=== PATIENT | female | born 1950 | race African-American/Black ===

== ENCOUNTER → 2016-04-21 | Outpatient (CLI) | payer MEDICARE, OTHER ==
[2016-04-05 10:14] VITALS: BP 118/81
[~2016-04-21] MED LIST: ACET325T16 PO; ALBU2.5V5 INH; AMLO10TA2 PO; AMOX1TAB10 PO; AZAT50TA PO; BECL8.7A INH; BUDE10.2 IH; CALC667C6 PO; CARV3.122 PO; CETI10TA16 PO; GABA-586 PO; GABA600T2 PO; HYDR-2672 PO; HYDR12.53 PO; IPRA3AMP NEB; OXYGEN; POTA10CA PO; POTA20TA12 PO; POTA20TA4 PO; PRED20TA PO; PROAIR HFA8.5 GM IH; SIMV20TA3 PO; SPIR50TA2 PO; WATER PILL; [UNRECOGNIZED DRUG - REMARK]
--- NOTE | 2016-04-21 11:22 | RAD ---
DATE: 04/21/2016. EXAM: DIGITAL SCREEN BILAT W/CAD HISTORY: Routine screening. COMPARISON: 04/15/2015. This study was interpreted with the benefit of Computerized Aided Detection (CAD). FINDINGS: 2-D digital mammography was performed. Mild density is noted bilaterally. The parenchymal pattern is stable. No dominant mass or malignant-appearing microcalcifications are seen. The axillae are unremarkable. IMPRESSION: No mammographic features suspicious for malignancy. BI-RADS CATEGORY: 1 NEGATIVE RECOMMENDED FOLLOW-UP: 12M 12 MONTH FOLLOW-UP PQRS compliance statement: Patient information was entered into a reminder system with a target due date for the next mammogram. Mammography is a sensitive method for finding small breast cancers, but it does not detect them all and is not a substitute for careful clinical examination. A negative mammogram does not negate a clinically suspicious finding and should not result in delay in biopsying a clinically suspicious abnormality. "Our facility is accredited by the [employer] Mammography Program."
== END | disposition home or self-care (01) ==
LOC: MAMMO 10:27
PROVIDERS: ATTEND Internal Medicine
DX: Z12.31 Encounter for screening mammogram for malignant neoplasm of breast (principal)
CPT/HCPCS: G0202; 77067

== ENCOUNTER 2017-03-24 17:08 | Emergency (ER) | payer MEDICARE, OTHER ==
[2017-03-24] MEDS: CYCLOBENZAPRINE 10 MG TABLET. PO (18:24)
[2017-03-24] MEDS: DIPHTH,PERTUSS(ACELL),TET TOX 0.5 ML DISP.SYRIN. VAX IM (18:26)
== END 2017-03-24 19:21 | disposition home or self-care (01) ==
LOC: ER 17:08
DX: S63.622A Sprain of interphalangeal joint of left thumb, initial encounter (principal); S80.01XA Contusion of right knee, initial encounter; S20.212A Contusion of left front wall of thorax, initial encounter; J44.9 Chronic obstructive pulmonary disease, unspecified; N18.9 Chronic kidney disease, unspecified; Z90.710 Acquired absence of both cervix and uterus; Z99.81 Dependence on supplemental oxygen; W18.39XA Other fall on same level, initial encounter; Y93.01 Activity, walking, marching and hiking; Y92.89 Other specified places as the place of occurrence of the external cause; Y99.8 Other external cause status
CPT/HCPCS: 29125; 71101; 73130; 73564; 90471; 90715; 99284-25

== ENCOUNTER → 2017-05-11 | Outpatient (CLI) | payer MEDICARE, OTHER | END | disposition home or self-care (01) | LOC: MAMMO 08:20 | DX: Z12.31 Encounter for screening mammogram for malignant neoplasm of breast (principal) | CPT/HCPCS: 77063; 77067 ==

== ENCOUNTER → 2018-08-08 | Day surgery (SDC) | payer OTHER ==
[~2018-08-08] MED LIST changes: +ALBU2.5V8 IH; -AMLO10TA2 PO; +AMLO10TA8 PO; -BECL8.7A INH; +BECL8.7A7 INH; +CARV3.1210 PO; -CARV3.122 PO; +CYCL10TA2 PO; +DICL50TA4 PO; -GABA-586 PO; +GABA300C18 PO; -GABA600T2 PO; +GABA600T7 PO; -HYDR-2672 PO; +HYDR-2769 PO; -HYDR12.53 PO; +HYDR12.575 PO; -IPRA3AMP NEB; +IPRA3AMP29 NEB; +IV RINGERS,LACTATED 1000ML 1,000 ML IV SCH; +LIDOCAINE 1% PF 2 ML VIAL. ID PRN; +LIDOCAINE 2% PF 5 ML VIAL. ONE; +MIDAZOLAM HCL/PF 2 MG/2 ML VIAL. IV PRN; -POTA10CA PO; +POTA10TA12 PO; -PROAIR HFA8.5 GM IH; +PROPOFOL 40 ML IV ONE; -SPIR50TA2 PO; +SPIR50TA4 PO; +fentaNYL PF VIAL 100 MCG/2 ML VIAL IV PRN
[2018-08-08 12:10] VITALS: BP 155/80
--- NOTE | 2018-08-09 15:06 | PATHOLOGY ---
[facility] Accession Number: [id number] . 01 Material submitted: . PART A: stomach - RANDOM GASTRIC BIOPSY PART B: stomach - GASTRIC POLYP . 01 Clinical history: . Esophageal varices . 02 Diagnosis: A. Random gastric biopsies: - Mild chronic gastritis. . B. Gastric biopsy, gastric polyp: - Small hyperplastic polyp. . (JPM:mml; 08/09/2018) [facility]/08/09/2018 . 02 Comment: Sections of the random gastric biopsy reveal segments of gastric body and gastric antral mucosa. The gastric body mucosa shows congestion and very mild superficial chronic inflammation. The gastric antral/body transition mucosa shows congestion and mild chronic inflammation. A properly-controlled immunoperoxidase stain for Helicobacter is negative for Helicobacter organisms. . Sections of the gastric polyp biopsy reveal a small polypoid segment of gastric mucosa showing mild foveolar hyperplasia and congestion, consistent with hyperplastic polyp. There are no adenomatous changes or evidence of malignancy. . Special stain performed: Immunoperoxidase stain for Helicobacter on A1. . (JPM:mml; 08/09/2018) . 02 Electronically signed: . Galen Horne MD, Pathologist NPI- [id number] . 01 Gross description: . A. Received in formalin labeled "Franco, Pinky, random gastric BX," are 4 segments of luong soft tissue measuring 1.1 x 0.9 x 0.2 cm in aggregate dimensions and ranging from 0.2 to 0.5 cm in maximum dimension. The specimen is submitted entirely in cassette A1. . B. Received in formalin labeled "Franco, Pinky, gastric polyp," is a single segment of luong soft tissue measuring 0.1 cm in maximum dimension. The specimen is entirely submitted in cassette B1. (TSD; 08/08/2018) TOB/TOB . 02 Pathologist provided ICD-10: K29.50, K31.7 . 02 CPT . 368596, 959028, P03697 Specimen Comment: A courtesy copy of this report has been sent to Specimen Comment: [phone], . Specimen Comment: Report sent to / DR RUCKER Performed at: [address] [facility], [place] [id number] MD Roland Mead MD Phone: [phone] Performed at: 02 [facility] [address] [place], [place] [id number] MD Galen Horne MD Phone: [phone]
== END | disposition home or self-care (01) ==
LOC: ENDOS 09:14
PROVIDERS: ATTEND Internal Medicine
DX: K22.2 Esophageal obstruction (principal); K22.8 Other specified diseases of esophagus; K44.9 Diaphragmatic hernia without obstruction or gangrene; K29.50 Unspecified chronic gastritis without bleeding; K31.89 Other diseases of stomach and duodenum; K31.7 Polyp of stomach and duodenum; I12.9 Hypertensive chronic kidney disease with stage 1 through stage 4 chronic kidney disease, or unspecified chronic kidney disease; N18.9 Chronic kidney disease, unspecified; E78.00 Pure hypercholesterolemia, unspecified; F32.9 Major depressive disorder, single episode, unspecified; Z86.010 Personal history of colon polyps; Z87.891 Personal history of nicotine dependence; Z79.899 Other long term (current) drug therapy; Z98.890 Other specified postprocedural states; J96.11 Chronic respiratory failure with hypoxia; Z99.81 Dependence on supplemental oxygen; F10.20 Alcohol dependence, uncomplicated; K74.60 Unspecified cirrhosis of liver
CPT/HCPCS: 43239; 88305; 88342; J2001; J2704

== ENCOUNTER → 2018-12-13 | Outpatient (CLI) | payer MEDICARE, OTHER ==
[2018-08-08 12:10] VITALS: BP 155/80
[~2018-12-13] MED LIST changes: -IV RINGERS,LACTATED 1000ML 1,000 ML IV SCH; -LIDOCAINE 1% PF 2 ML VIAL. ID PRN; -LIDOCAINE 2% PF 5 ML VIAL. ONE; -MIDAZOLAM HCL/PF 2 MG/2 ML VIAL. IV PRN; -PROPOFOL 40 ML IV ONE; -fentaNYL PF VIAL 100 MCG/2 ML VIAL IV PRN
--- NOTE | 2018-12-13 17:24 | KCIC ---
Bilateral digital screening mammograms with 3-D tomosynthesis: Reason for examination: Routine screening. Comparison is made to previous studies dated 05/11/2017 and 04/21/2016. Bilateral mammograms in CC and oblique projections were obtained with 2-D imaging and 3-D tomosynthesis imaging on a Siemens Inspiration unit and reviewed on the workstation. Interpretation was made with the benefit of CAD. The skin and nipples show no abnormalities. No abnormal axillary lymph nodes are seen. The breast parenchyma is heterogeneously dense. (Breast density: Category C.) There are no dominant masses, suspicious calcifications or architectural distortion. Benign vascular calcifications are present. Impression: No evidence of malignancy. Recommend routine screening. Your patient's mammogram demonstrates that she has dense breast tissue (breast density category C or D), which could hide abnormalities, and if she has other risk factors for breast cancer that have been identified, she might benefit from supplemental screening tests that may be suggested by you as her ordering physician. Dense breast tissue, in and of itself, is a relatively common condition. Therefore, this information is not provided to cause undue concern, but rather to raise your awareness and to promote discussion with your patient regarding the presence of other risk factors, in addition to dense breast tissue. Your patient's mammography results will be sent to her. BI-RAD Category 2: Benign. "Our facility is accredited by the [employer] Mammography Program." This patient's information has been entered into a reminder system for the patient to be notified with the results of her examination and a target date for the next mammogram. Electronically signed by: Pau Gamino MD (12/13/2018 5:21 PM) [id number]
--- NOTE | 2018-12-13 18:01 | KCIC ---
Bone Densitometry History: Post menopausal, screening. COMPARISON: Bone density 04/15/2015. Findings: Bone Densitometry was performed with dual photon absorption of the lumbar spine and left proximal femur Lumbar Spine: Bone density is 0.792 g/cm2 for L1-L4. T-score is -2.3. Z-score is -1.2. No significant change from prior study. Left total femur: Bone density is 0.525 g/cm2. T-score is -3.4. Z-score is -2.2. No significant change from prior study. IMPRESSION: 1. Advanced osteopenia of the lumbar spine. 2. Osteoporosis of the left femur. World Health Organization definition of osteoporosis and osteopenia for women: normal equals T score at or above -1.0 standard deviations; osteopenia equals T score between -1.0 and -2.5 standard deviations; osteoporosis equals T score at or below -2.5 standard deviations. Electronically signed by: Daniel Holder MD (12/13/2018 5:58 PM) [id number]
== END | disposition home or self-care (01) ==
LOC: KCIC MAMMO 10:42
PROVIDERS: ATTEND Internal Medicine
DX: Z12.31 Encounter for screening mammogram for malignant neoplasm of breast (principal); N64.89 Other specified disorders of breast; M85.88 Other specified disorders of bone density and structure, other site; M81.8 Other osteoporosis without current pathological fracture; Z78.0 Asymptomatic menopausal state
CPT/HCPCS: 77063; 77067; 77080

== ENCOUNTER 2019-12-13 16:17 | Emergency (ER) | payer MEDICARE, OTHER ==
[~2019-12-13] VITALS: Ht 165.1 cm; Wt 62.0 kg
[~2019-12-13 16:17] MED LIST changes: +ACET-2061 PO; -ACET325T16 PO; +SIMV20TA18 PO; -SIMV20TA3 PO
--- NOTE | 2019-12-13 17:23 | EKG ---
[facility] [address] [place] [address] Test Date: 2019-12-13 Test Time: 16:58:56 Pat Name: NICOLE MEDINA Department: Room: Gender: F Curriculum Coordinator: : 1950 Requested By: NAYA SRINIVASAN Order Number: [id number] Reading MD: Measurements Intervals Bee Rate: 81 P: [place]: QRS: 76 QRSD: 92 T: 57 QT: 342 QTc: 402 Interpretive Statements ATRIAL FLUTTER CONSIDER RIGHT VENTRICULAR HYPERTROPHY QRS(T) CONTOUR ABNORMALITY CONSIDER ANTEROLATERAL MYOCARDIAL DAMAGE ST & T ABNORMALITY, CONSIDER ANTERIOR ISCHEMIA OR LEFT VENTRICULAR STRAIN ABNORMAL ECG RI6.02 No previous ECG available for comparison
--- NOTE | 2019-12-13 18:13 | RAD ---
EXAM: AP View of the chest DATE: 12/13/2019 4:59 PM INDICATION: Shortness of air COMPARISON: No Prior FINDINGS: Heart is not enlarged. Aorta is tortuous without scarring calcifications. Patchy opacities left greater than right lung base likely atelectasis or developing consolidation. Emphysematous changes are seen. Trace bilateral pleural effusions. Patient's chin obscures lung apices. Within these constraints, no pneumothorax. IMPRESSION: Patchy opacities left greater than right lung base likely atelectasis or developing consolidation. Emphysematous changes are seen. Trace pleural effusions. Electronically signed by: Dixon Cuba MD (12/13/2019 6:10 PM) KOREY
--- NOTE | 2019-12-13 18:18 | PHYS DOC ---
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 Patient still makes urine, no history of elevated ammonia or jaundice. Denies any fevers or medication overdose. No head trauma or rashes. Denies any recent alcohol or substance abuse. No h/o tremors, gait instability or neuro deficits. (NAYA SRINIVASAN DO) Review of Systems: Review of Systems: Constitutional: Denies fever or chills. [] Eyes: Denies change in visual acuity. [] HENT: Denies nasal congestion or sore throat. [] Respiratory: Denies cough or shortness of breath. [] Cardiovascular: Denies chest pain or edema. [] GI: Denies abdominal pain, nausea, vomiting, bloody stools or diarrhea. [] : Denies dysuria, anuria, hematuria Musculoskeletal: Denies back pain or joint pain. [] Integument: Denies rash. [] Neurologic: Denies headache, focal weakness or sensory changes. [] Endocrine: Denies polyuria or polydipsia. [] Lymphatic: Denies swollen glands. [] Psychiatric: Denies depression or anxiety. [] (NAYA SRINIVASAN DO) Heart Score: Risk Factors: Risk Factors: DM, Current or recent (<one month) smoker, HTN, HLP, family histo ry of CAD, obesity. Risk Scores: Score 0 - 3: 2.5% MACE over next 6 weeks - Discharge Home Score 4 - 6: 20.3% MACE over next 6 weeks - Admit for Clinical Observation Score 7 - 10: 72.7% MACE over next 6 weeks - Early Invasive Strategies (NAYA SRINIVASAN DO) Allergies: Allergies: Allergies Coded Allergies Type Severity Reaction Last Updated Verified No Known Drug Allergies 08/08/18 No (NAYA SRINIVASAN DO) Physical Exam: PE: Constitutional: Well developed, well nourished, no acute distress, non-toxic appearance. [] HENT: Normocephalic, atraumatic, no head bobbing/confusion or asterixis Eyes: EOMI, conjunctiva normal, no discharge. [] Neck: Normal range of motion, no tenderness, supple, no stridor. [] Cardiovascular:Heart rate regular rhythm, no murmur [] Lungs & Thorax: Bilateral breath sounds clear to auscultation [] Abdomen: Bowel sounds normal, soft, +ascites, no tenderness, no masses, no pulsatile masses. [] Skin: Warm, dry, no erythema, no rash. [] Back: No tenderness, no CVA tenderness. [] Extremities: tremulous, no tenderness, no cyanosis, no clubbing, ROM intact, no edema. [] Neurologic: Alert and oriented X 3, normal motor function, normal sensory function, no focal deficits noted. [] Psychologic: Affect normal, judgement normal, mood normal. [] (NAYA SRINIVASAN DO) PE: 69-year-old female signed over to me by . Patient has a resting tremor. Patient had some mild congestion a couple weeks ago and x-ray shows a possible infiltrate therefore should be covered with antibiotics. Rest of her work-up is reassuring other than yeast in her urine. On my assessment patient has a resting tremor but is in no respiratory distress and would like to go home. I discussed the case with Dr. Fofana who is her doctor who will see her early next week. Patient was placed on antibiotics for possible pneumonia and given a Diflucan to take after the antibiotics. Patient given a short course of Ativan for her resting tremor, patient instructed that she will need to follow-up with a neurologist if the tremor persist. (VIVIENNE RANDALL MD) Current Patient Data: Vital Signs: Vital Signs Date Time Temp Pulse Resp B/P (MAP) Pulse Ox O2 Delivery O2 Flow Rate FiO2 12/13/19 17:00 98.1 83 20 123/71 (88) 100 Nasal Cannula 2.0 98.1 (NAYA SRINIVASAN DO) Labs: Laboratory Tests Test 12/13/19 18:05 12/13/19 19:20 White Blood Count 6.1 x10^3/uL Red Blood Count 3.77 x10^6/uL Hemoglobin 12.0 g/dL Hematocrit 35.9 % Mean Corpuscular Volume 95 fL Mean Corpuscular Hemoglobin 32 pg Mean Corpuscular Hemoglobin Concent 34 g/dL Red Cell Distribution Width 14.6 % Platelet Count 177 x10^3/uL Neutrophils (%) (Auto) 64 % Lymphocytes (%) (Auto) 23 % Monocytes (%) (Auto) 11 % Eosinophils (%) (Auto) 1 % Basophils (%) (Auto) 1 % Neutrophils # (Auto) 3.9 x10^3/uL Lymphocytes # (Auto) 1.4 x10^3/uL Monocytes # (Auto) 0.7 x10^3/uL Eosinophils # (Auto) 0.1 x10^3/uL Basophils # (Auto) 0.1 x10^3/uL Sodium Level 140 mmol/L Potassium Level 4.4 mmol/L Chloride Level 102 mmol/L Carbon Dioxide Level 33 mmol/L Anion Gap 5 Blood Urea Nitrogen 31 mg/dL Creatinine 1.5 mg/dL Estimated GFR (Cockcroft-Gault) 41.8 BUN/Creatinine Ratio 21 Glucose Level 102 mg/dL Calcium Level 9.8 mg/dL Magnesium Level 2.3 mg/dL Total Bilirubin 0.4 mg/dL Aspartate Amino Transf (AST/SGOT) 37 U/L Alanine Aminotransferase (ALT/SGPT) 35 U/L Alkaline Phosphatase 142 U/L Ammonia < 10 mcmol/L Troponin I Quantitative < 0.017 ng/mL LZ-Ydi-L-Type Natriuretic Peptide 189 pg/mL Total Protein 7.9 g/dL Albumin 3.5 g/dL Albumin/Globulin Ratio 0.8 Urine Collection Type Void Urine Color Yellow Urine Clarity Clear Urine pH 5.0 Urine Specific [place] 1.015 Urine Protein Negative mg/dL Urine Glucose (UA) Negative mg/dL Urine Ketones (Stick) Negative mg/dL Urine Blood Trace Urine Nitrite Negative Urine Bilirubin Negative Urine Urobilinogen Dipstick 1.0 mg/dL Urine Leukocyte Esterase Trace Urine RBC 1-2 /HPF Urine WBC 1-4 /HPF Urine Squamous Epithelial Cells Few /LPF Urine Bacteria Few /HPF Urine Yeast Present /HPF Current Medications Medications (Trade) Dose Ordered Sig/Lily Route PRN Reason Start Time Stop Time Status Last Admin Dose Admin Lorazepam (Ativan Inj) 0.5 mg 1X ONCE IVP 12/13/19 19:30 12/13/19 19:31 DC Haloperidol Lactate (Haldol Inj) 5 mg 1X ONCE IM 12/13/19 19:30 12/13/19 19:33 DC Lorazepam (Ativan Inj) 1 mg 1X ONCE IVP 12/13/19 19:30 12/13/19 19:33 DC Vital Signs: Vital Signs Date Time Temp Pulse Resp B/P (MAP) Pulse Ox O2 Delivery O2 Flow Rate FiO2 12/13/19 18:56 98 Nasal Cannula 2.0 12/13/19 18:41 76 120/89 (99) 82 Room Air 12/13/19 17:54 80 15 105/72 (83) 99 Room Air 12/13/19 17:00 98.1 83 20 123/71 (88) 100 Nasal Cannula 2.0 98.1 (VIVIENNE RANDALL MD) EKG: EKG: [] (NAYA SRINIVASAN DO) EKG: EKG interpreted by me very poor quality due to the tremor but appears to be sinus with a rate of 81 normal axis unable to determine ST segments (VIVIENNE RANDALL MD) Radiology/Procedures: Radiology/Procedures: [] (NAYA SRINIVASAN DO) Radiology/Procedures: [facility] [address] [place] [address] IMAGING REPORT Signed PATIENT: NICOLE MEDINA CACCOUNT: [id number] : 1950 LOCATION: ER AGE: 69 SEX: F EXAM STATUS: REG ER ORD. PHYSICIAN: NAYA SRINIVASAN DO REASON: soa PROCEDURE: PORTABLE CHEST 1V EXAM: AP View of the chest DATE: 12/13/2019 4:59 PM INDICATION: Shortness of air COMPARISON: No Prior FINDINGS: Heart is not enlarged. Aorta is tortuous without scarring calcifications. Patchy opacities left greater than right lung base likely atelectasis or developing consolidation. Emphysematous changes are seen. Trace bilateral pleural effusions. Patient's chin obscures lung apices. Within these constraints, no pneumothorax. IMPRESSION: Patchy opacities left greater than right lung base likely atelectasis or developing consolidation. Emphysematous changes are seen. Trace pleural effusions. Electronically signed by: Dixon Crawford MD (12/13/2019 6:10 PM) [facility] DICTATED and SIGNED BY: DIXON CRAWFORD MD DATE: 12/13/191809 (VIVIENNE RANDALL MD) Course & Med Decision Making: Course & Med Decision Making Pertinent Labs and Imaging studies reviewed. (See chart for details) 64 yo F presents to the ed with c/o whole body tremors/shaking. Labs and imaging pending. Due to shift change patient was signed out to Dr. Randall. (NAYA SRINIVASAN DO) Dragon Disclaimer: Dragon Disclaimer: This electronic medical record was generated, in whole or in part, using a voice recognition dictation system. (NAYA SRINIVASAN DO) Departure Departure Impression: Primary Impression: Tremor Additional Impressions: Yeast infection Pneumonia Disposition: HOME, SELF-CARE Condition: STABLE Referrals: HOMER FOFANA MD (PCP) Patient Instructions: Pneumonia, Adult, Tremor Additional Instructions: EMERGENCY DEPARTMENT GENERAL DISCHARGE INSTRUCTIONS THANK YOU for coming to [facility] Emergency Department (ED) today and trusting us with your care. We trust that you had a positive experience in our Emergency Department. If you wish to speak to the department Management you can contact the departmental secretary at . YOUR FOLLOW UP INSTRUCTIONS ARE FOLLOWS: Do you have a private doctor? If you do not have a private doctor, please ask for a resource list of physicians or clinics that may be able to assist you with follow up care. The Emergency Physician has interpreted your x-rays. The X-ray specialist will also review them. If there is a change in the findings you will be notified in 48 hours when at all possible. A lab test or lab culture may have been done, your results will be reviewed and you will be notified if you need a change in treatment. ADDITIONAL INSTRUCTIONS AND INFORMATION Your care today has been supervised by a physician who is specially trained in emergency care. Many problems require more than one evaluation for a complete diagnosis and treatment. We recommend that you schedule your follow up appointment as recommended to ensure complete treatment of your illness or injury. If you are unable to obtain follow up care and continue to have a problem, or if your condition worsens we recommend that you return to the ED. We are not able to safely determine your condition over the phone nor are we able to give sound medical advice over the phone. For these safety reasons, if you call for medical advice we will ask you to come to the ED for further evaluation If you have any questions regarding these discharge instructions please call the ED at . SAFETY INFORMATION In the interest of safety, wellness, and injury prevention; we encourage you to wear your seatbelt, if you smoke; quit smoking, and we encourage your family to use protective helmet for bicycling and other sporting events that present an increased risk for head injury. IF YOUR SYMPTOMS WORSEN OR NEW SYMPTOMS DEVELOP, OR YOU HAVE CONCERNS ABOUT YOUR CONDITION; OR IF YOUR CONDITION WORSENS WHILE YOU ARE WAITING FOR YOUR FOLLOW UP BEBETO OINTMENT; EITHER CONTACT YOUR PRIMARY CARE DOCTOR, THE PHYSICIAN WHOSE NAME AND NUMBER YOU WERE GIVEN, OR RETURN TO THE ED IMMEDIATELY. You have some yeast in your urine you will need to take the Diflucan after he finished antibiotics Scripts Azithromycin (ZITHROMAX) 250 Mg Tablet 1 PKG PO UD, #6 TAB Prov: VIVIENNE RANDALL MD 12/13/19 Fluconazole (DIFLUCAN) 150 Mg Tablet 1 TAB PO ONCE, #1 TAB 1 Refill TAKE AFTER YOU FINISH THE ZITHROMAX Prov: VIVIENNE RANDALL MD 12/13/19 Lorazepam (ATIVAN) 0.5 Mg Tablet 0.5 MG PO BID for TREMOR, #12 TAB Prov: VIVIENNE RANDALL MD 12/13/19 Justicifation of Admission Dx: Justifications for Admission: Justification of Admission Dx: N/A (NAYA SRINIVASAN DO) Justification of Admission Dx: N/A (VIVIENNE RANDALL MD) NAYA SRINIVASAN DO Dec 13, 2019 18:18 VIVIENNE RANDALL MD Dec 13, 2019 19:34
[2019-12-13 18:20] LABS: BASO # 0.1 x10^3/uL (0.0-0.2); BASO % 1 % (0-3); EOS # 0.1 x10^3/uL (0.0-0.7); EOS % 1 % (0-3); HEMATOCRIT 35.9 % (36.0-47.0); LYMPH # 1.4 x10^3/uL (1.0-4.8); LYMPH % 23 % (24-48); MEAN CORPUSCULAR HEMOGLOBIN 32 pg (25-35); MEAN CORPUSCULAR HGB CONC 34 g/dL (31-37); MEAN CORPUSCULAR VOLUME 95 fL (79-100); MONO # 0.7 x10^3/uL (0.0-1.1); MONO % 11 % (0-9); NEUT # 3.9 x10^3/uL (1.8-7.7); NEUT % 64 % (31-73); PLATELET COUNT 177 x10^3/uL (140-400); RED BLOOD COUNT 3.77 x10^6/uL (3.50-5.40); RED CELL DISTRIBUTION WIDTH 14.6 % (11.5-14.5); WHITE BLOOD COUNT 6.1 x10^3/uL (4.0-11.0)
[2019-12-13 18:38] LABS: CALCIUM 9.8 mg/dL (8.5-10.1); CREATININE 1.5 mg/dL (0.6-1.0); GFR 41.8; POTASSIUM 4.4 mmol/L (3.5-5.1)
[2019-12-13 18:41] VITALS: BP 120/89
[2019-12-13 18:44] LABS: ALBUMIN 3.5 g/dL (3.4-5.0); ALBUMIN/GLOBULIN RATIO 0.8 (1.0-1.7); TOTAL BILIRUBIN 0.4 mg/dL (0.2-1.0); TOTAL PROTEIN 7.9 g/dL (6.4-8.2)
[2019-12-13 19:27] LABS: BILIRUBIN,URINE NEGATIVE (NEG); CLARITY,URINE CLEAR; COLOR,URINE YELLOW; NITRITE,URINE NEGATIVE (NEG); PROTEIN,URINE NEGATIVE (NEG-TRACE)
[2019-12-13] MEDS ORDERED: HALOPERIDOL LACTATE 5 MG/ML VIAL. IM ONE (19:30)
[2019-12-13 19:36] LABS: BACTERIA,URINE FEW /HPF (0-FEW); SQUAMOUS EPITHELIAL CELL,UR FEW /LPF
[2019-12-13 19:37] LABS: YEAST,URINE PRESENT /HPF
[2019-12-13] MEDS ORDERED: AZIT250T PO (20:04)
[2019-12-13] MEDS ORDERED: LORA0.5T96 PO (20:04)
[2019-12-13] MEDS ORDERED: FLUC150T PO (20:04)
--- NOTE | 2019-12-14 08:36 | EKG ---
[facility] [address] [place] [address] Test Date: 2019-12-13 Test Time: 19:44:51 Pat Name: NICOLE MEDINA Department: Room: Gender: F Auto Service Writer: : 1950 Requested By: VIVIENNE RANDALL Order Number: [id number] Reading MD: Measurements Intervals [place] Rate: 86 P: NE: QRS: 34 QRSD: 74 T: 66 QT: 354 QTc: 427 Interpretive Statements ATRIAL FLUTTER VENTRICULAR PREMATURE COMPLEX(ES) LOW LIMB LEAD VOLTAGE T ABNORMALITY IN HIGH LATERAL LEADS ABNORMAL ECG RI6.02 Compared to ECG 12/13/2019 19:41:11 T-wave abnormality now present
[2019-12-18] MEDS ORDERED: FURO40TA4 PO (22:13)
[2019-12-18] MEDS ORDERED: MONT10TA49 PO (22:13)
[2019-12-19] MEDS ORDERED: LATA2.5D3 OU (12:00)
== END 2019-12-13 20:19 | disposition home or self-care (01) ==
LOC: ER 16:17
DX: J18.9 Pneumonia, unspecified organism (principal); R25.1 Tremor, unspecified; B37.49 Other urogenital candidiasis; J44.9 Chronic obstructive pulmonary disease, unspecified; F10.10 Alcohol abuse, uncomplicated; Y90.9 Presence of alcohol in blood, level not specified; Z90.710 Acquired absence of both cervix and uterus
CPT/HCPCS: 36415; 71045; 80053; 81001; 82140; 83735; 83880; 84484; 85025; 87086; 93005; 99285

== ENCOUNTER → 2020-02-07 | Outpatient (CLI) | payer MEDICARE, OTHER ==
[2019-12-24 09:41] VITALS: BP 106/66
[~2020-02-07] MED LIST changes: +AMLO-186 PO; +AMLO-187 PO; -AMLO10TA8 PO; +AMOX1TAB58 PO; +ATOR10TA60 PO; +AZIT250T PO; +FLUC150T PO; +FURO20TA3 PO; +FURO40TA4 PO; +LATA2.5D3 OU; +LORA0.5T96 PO; +MONT10TA49 PO
--- NOTE | 2020-02-08 12:28 | RAD ---
DATE: 02/07/2020 12:36 PM EXAM: DIGITAL SCREEN BILAT W/CAD HISTORY: Screening COMPARISON: 12/13/2018 Bilateral full field craniocaudal and mediolateral oblique images were obtained using digital technique. This study was interpreted with the benefit of Computerized Aided Detection (CAD). FINDINGS: Breast Density: SCATTERED The breast parenchyma shows scattered fibroglandular densities. Breast parenchyma level B No suspicious masses, microcalcifications or architectural distortion is present to suggest malignancy in either breast. The visualized axillae are unremarkable. IMPRESSION: No mammographic evidence of malignancy. BI-RADS CATEGORY: 1 NEGATIVE RECOMMENDED FOLLOW-UP: 12M 12 MONTH FOLLOW-UP Annual screening mammography is recommended, unless clinically indicated sooner based on symptoms or change in physical exam. PQRS compliance statement: Patient information was entered into a reminder system with a target due date for the next mammogram. Mammography is a sensitive method for finding small breast cancers, but it does not detect them all and is not a substitute for careful clinical examination. A negative mammogram does not negate a clinically suspicious finding and should not result in delay in biopsying a clinically suspicious abnormality. "Our facility is accredited by the [employer] Mammography Program."
== END ==
LOC: MAMMO 12:33
PROVIDERS: ATTEND Internal Medicine
DX: Z12.31 Encounter for screening mammogram for malignant neoplasm of breast (principal)
CPT/HCPCS: 77067